=== PATIENT | female | born 1985 | race Caucasian/White ===

== ENCOUNTER 2016-10-23 23:55 | Emergency (ER) | payer MEDICAID ==
[~2016-10-23] VITALS: Ht 172.7 cm; Wt 129.3 kg
[~2016-10-23 23:55] MED LIST: GLYB5TAB7 PO; METF1000 PO; METH500T PO; METO-290 PO; NORCO5 PO
[2016-10-24 00:28] VITALS: BP_SYST 122
--- NOTE | 2016-10-24 00:28 | NUR ---
Patient to ER bed 3 for evaluation. Side rails up. Report given to ALPHONSO James.
--- NOTE | 2016-10-24 00:30 | NUR ---
Pt brought herself into the ER in stable condition. Pt c/o right eye swelling x30 min. Pt stated that she felt that there was something in her eye and she scratched it and all of a sudden eye swelled up. Pt present w/ right eye swollen shut. Pt denies any pain to right eye. No acute distress noted at this time, will continue to montior
--- NOTE | 2016-10-24 00:35 | NUR ---
ER at bedside examining patient.
[2016-10-24 01:16] VITALS: BP_SYST 122
--- NOTE | 2016-10-24 01:16 | NUR ---
Patient given written and verbal discharge instructions and verbalizes understanding. ER MD Espinoza discussed with patient the results and treatment provided. Patient in stable condition. ID arm band removed. Rx of Tylenol w/ codeine and Tobramycin given. Patient educated on pain management and to follow up with PMD. Pain Scale 0/10. Opportunity for questions provided and answered.
== END 2016-10-24 01:16 | disposition home or self-care (01) ==
LOC: SED 23:55
DX: H11.421 Conjunctival edema, right eye (principal); H01.009 Unspecified blepharitis unspecified eye, unspecified eyelid; J45.909 Unspecified asthma, uncomplicated; E11.9 Type 2 diabetes mellitus without complications
CPT/HCPCS: 82962; 99283

== ENCOUNTER 2016-11-13 19:36 | Emergency (ER) | payer MEDICAID ==
[~2016-11-13] VITALS: Ht 172.7 cm; Wt 129.3 kg
[2016-11-13 19:52] VITALS: BP_SYST 128
--- NOTE | 2016-11-13 20:37 | NUR ---
Patient to ER bed 07 to gown for evaluation. Side rails up.
--- NOTE | 2016-11-13 20:40 | NUR ---
Pt came from home, c/o pain 6/10 and burning sensation in her right eye. She reports that she felt something in her left eye when she watched movie at home and she scrubbed her eye. Pt denies other distress. Continue to monitor pt.
--- NOTE | 2016-11-13 22:00 | NUR ---
ER SAM Morales at bedside examining patient.
[2016-11-13 22:25] VITALS: BP_SYST 122
--- NOTE | 2016-11-13 22:25 | NUR ---
Note parkercatalino in EDM - 11/13/16 at 2233 by [email or web address] Patient given written and verbal discharge instructions and verbalizes understanding. ER discussed with patient the results and treatment provided. Patient in stable condition. ID arm band removed. Rx of given. Patient educated on pain management and to follow up with PMD. Pain Scale 09/07. Opportunity for questions provided and answered.
--- NOTE | 2016-11-13 22:33 | NUR ---
Patient given written and verbal discharge instructions and verbalizes understanding. ER MD discussed with patient the results and treatment provided. Patient in stable condition. ID arm band removed. Rx of Motrin, Tylenol/Codein, Polytrim given. Patient educated on pain management and to follow up with PMD. Pain Scale 09/07. Opportunity for questions provided and answered.
== END 2016-11-13 22:25 | disposition home or self-care (01) ==
LOC: SED 19:36
DX: S05.01XA Injury of conjunctiva and corneal abrasion without foreign body, right eye, initial encounter (principal); E11.9 Type 2 diabetes mellitus without complications; J45.909 Unspecified asthma, uncomplicated; Z79.4 Long term (current) use of insulin; X58.XXXA Exposure to other specified factors, initial encounter; Y93.89 Activity, other specified; Y99.8 Other external cause status; Y92.89 Other specified places as the place of occurrence of the external cause
CPT/HCPCS: 99283